=== PATIENT | male | born 1990 | race African-American/Black ===

== ENCOUNTER 2016-10-11 14:41 | Emergency (ER) | payer SELFPAY ==
[2016-10-11 17:28] LABS: SOURCE: MALE URINE
[2016-10-11 17:29] LABS: CHLAMYDIA TRACH PCR DETECTED (NOT DETEC)
[2016-10-11 17:30] LABS: GC PCR NOT DETECTED (NOT DETECT)
== END 2016-10-11 16:43 | disposition home or self-care (01) ==
LOC: ER 14:41
PROVIDERS: Nurse Practitioner
DX: Z11.3 Encounter for screening for infections with a predominantly sexual mode of transmission (principal); Z20.2 Contact with and (suspected) exposure to infections with a predominantly sexual mode of transmission
CPT/HCPCS: 87491; 87591; 96372; 99283; A9270-GY; J0696